=== PATIENT | female | born 1990 | race Caucasian/White ===

== ENCOUNTER 2017-09-28 05:24 | Emergency (ER) | payer SELFPAY ==
[~2017-09-28] VITALS: Ht 162.6 cm; Wt 71.8 kg
[2017-09-28 06:07] LABS: HEMATOCRIT 41.1 % (34.6-47.8); WHITE BLOOD COUNT 12.5 x10^3/uL (3.4-10)
[2017-09-28 06:19] LABS: BLOOD UREA NITROGEN 17 mg/dL (7-18)
[2017-09-28 07:13] VITALS: BP 157/76
== END 2017-09-28 08:09 | disposition home or self-care (01) ==
LOC: ED 06:03
DX: O03.4 Incomplete spontaneous abortion without complication (principal); I10 Essential (primary) hypertension; N92.6 Irregular menstruation, unspecified; F17.200 Nicotine dependence, unspecified, uncomplicated
CPT/HCPCS: 36415; 76830; 80048; 81001; 82040; 84702; 85025; 86901; 87077; 87086; 87186; 99285

== ENCOUNTER 2017-10-18 18:32 | Emergency (ER) | payer OTHER ==
[~2017-10-18] VITALS: Ht 165.1 cm; Wt 75.4 kg
[2017-10-18 18:38] VITALS: BP 164/111
[2017-10-18] MEDS ORDERED: OXYcodone/APAP 5/325MG TABLET PO ONE (19:30)
[2017-10-18] MEDS ORDERED: CLINDAMYCIN 150 MG/ML, 6ML IM ONE (19:30)
[2017-10-18] MEDS ORDERED: LIDOCAINE 1%, 10ML INFIL ONE (19:30)
[2017-10-18] MEDS ORDERED: OXYcodone/APAP 5/325MG TABLET ONE (19:41)
== END 2017-10-18 20:11 | disposition home or self-care (01) ==
LOC: ED 20:05
DX: L02.01 Cutaneous abscess of face (principal)
CPT/HCPCS: 10060; 82962